=== PATIENT | female | born 1985 | race Caucasian/White ===

== ENCOUNTER 2017-04-27 01:23 | Emergency (ER) | payer MEDICAID ==
[2017-04-27] MEDS ORDERED: Ketorolac 60 MG/2 ML SDV IM ONE (02:12)
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
[2017-04-27 03:05] VITALS: BP 113/63
== END 2017-04-27 03:06 | disposition home or self-care (01) ==
LOC: JP.ED 01:23
DX: H60.331 Swimmer's ear, right ear (principal); F17.210 Nicotine dependence, cigarettes, uncomplicated; J45.909 Unspecified asthma, uncomplicated; K21.9 Gastro-esophageal reflux disease without esophagitis; F32.9 Major depressive disorder, single episode, unspecified; F41.9 Anxiety disorder, unspecified; Z98.890 Other specified postprocedural states; Z88.1 Allergy status to other antibiotic agents; H60.312 Diffuse otitis externa, left ear; H66.92 Otitis media, unspecified, left ear; J21.9 Acute bronchiolitis, unspecified
CPT/HCPCS: 96372; 99283; J1885

== ENCOUNTER 2017-04-27 22:29 | Emergency (ER) | payer MEDICAID ==
[2017-04-27 22:43] VITALS: BP 118/65
[2017-04-27] MEDS ORDERED: Ketorolac 60 MG/2 ML SDV IM ONE (23:04)
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
== END 2017-04-27 23:23 | disposition home or self-care (01) ==
LOC: JP.ED 22:29
DX: H60.312 Diffuse otitis externa, left ear (principal); H66.92 Otitis media, unspecified, left ear; F17.210 Nicotine dependence, cigarettes, uncomplicated; Z98.890 Other specified postprocedural states; J45.909 Unspecified asthma, uncomplicated; K21.9 Gastro-esophageal reflux disease without esophagitis; Z88.1 Allergy status to other antibiotic agents
CPT/HCPCS: 96372; 99283; J1885

== ENCOUNTER 2017-09-09 22:42 | Emergency (ER) | payer MEDICAID ==
[2017-09-09 23:00] VITALS: BP 138/89
[2017-09-10] MEDS ORDERED: Ketorolac 60 MG/2 ML SDV IM ONE (00:25)
[2017-09-10] MEDS ORDERED: Magnesium Citrate Solution 296 ML Bottle PO ONE (00:25)
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
--- NOTE | 2017-09-11 08:27 | CR ---
Abdomen 2V AP Flat Upright INDICATION: generalized abdomen pain FINDINGS: Normal bowel gas pattern. No evidence for small bowel obstruction or free air. Moderate sto ol and gas in the colon. Surgical clips in the abdomen.
== END 2017-09-10 00:50 | disposition home or self-care (01) ==
LOC: JP.ED 22:42
DX: K59.00 Constipation, unspecified (principal); F17.210 Nicotine dependence, cigarettes, uncomplicated; Z88.0 Allergy status to penicillin
CPT/HCPCS: 36415; 74020; 80048; 80305; 81001; 81025; 85025; 96372; 99284; A9270; J1885